=== PATIENT | female | born 1965 | race Caucasian/White ===

== ENCOUNTER 2022-06-12 13:56 | Outpatient (CLI) | payer OTHER, SELFPAY ==
[2022-06-12 12:01] LABS: Cholesterol* 192 mg/dL (90-199); Triglycerides* 96 mg/dL (40-149)
[2022-06-12 12:02] LABS: HDL Cholesterol* 76 mg/dL (>=50); LDL Cholesterol Calculated 97 mg/dL (<100)
[2022-06-13 19:33] LABS: Sex Hormone Binding Globulin 66 nmol/L (17-125); Testosterone, Adult Male 65 ng/dL; Testosterone, Free Calculation 7 pg/mL; Testosterone, Percentage Free 1.1 %
== END 2022-06-12 13:57 | disposition home or self-care (01) ==
PROVIDERS: Obstetrics & Gynecology; PCP Internal Medicine; Visit Provider Internal Medicine
DX: E78.5 Hyperlipidemia, unspecified (principal); R68.82 Decreased libido
CPT/HCPCS: 80061; 84270; 84402; 84403

== ENCOUNTER 2023-04-23 07:50 | Outpatient (CLI) | payer OTHER, SELFPAY | END 2023-04-23 07:51 | disposition home or self-care (01) | LOC: NFLDREF 11:46 | PROVIDERS: PCP Internal Medicine; Referring Provider Internal Medicine; Visit Provider Internal Medicine | DX: Z00.00 Encounter for general adult medical examination without abnormal findings (principal); E78.5 Hyperlipidemia, unspecified; M81.0 Age-related osteoporosis without current pathological fracture; Z13.21 Encounter for screening for nutritional disorder | CPT/HCPCS: 80061; 82306; 82947 ==

== ENCOUNTER 2023-08-18 08:32 | Outpatient (CLI) | payer OTHER, SELFPAY ==
--- NOTE | 2023-08-18 08:45 | CRLHL7_ITS ---
For Patients: As a result of the Century Cures Act, medical imaging exams and procedure reports are released immediately into your electronic medical record. You may view this report before your referring provider. If you have questions, please contact your health care provider. BILATERAL SCREENING MAMMOGRAM WITH COMPUTER-AIDED DETECTION AND TOMOSYNTHESIS TECHNIQUE: CC and MLO views were obtained. These mammographic images have been obtained using full-field digital technique. These mammographic images were interpreted with the benefit of computer-aided detection. Breast Tomosynthesis was used in this interpretation. COMPARISON FILM: 03/27/22, 12/02/17, 08/11/16. FINDINGS: The breasts are heterogeneously dense, which may obscure small masses IMPRESSION: There is no radiographic evidence for malignancy. ASSESSMENT: BI-RADS Category 1: Negative RECOMMENDATION: Routine screening mammogram in 1 year. A lay language report of this examination will be provided to the patient. Al Simental M.D. Diagnostic Radiologist [email or web address] Transcribed: 2:59 pm DW/Dictated by: Al Simental MD @ 08/18/2023 9:12:00 AM (Electronically Signed)
== END 2023-08-18 08:33 | disposition home or self-care (01) ==
LOC: MAMMO 08:32
PROVIDERS: PCP Internal Medicine; Visit Provider Internal Medicine
DX: Z12.31 Encounter for screening mammogram for malignant neoplasm of breast (principal); R92.2 Inconclusive mammogram
CPT/HCPCS: 77063; 77067

== ENCOUNTER 2023-09-29 13:45 | Outpatient (RCR) | payer OTHER, SELFPAY | END 2023-09-30 10:58 | disposition home or self-care (01) | PROVIDERS: PCP Internal Medicine; Visit Provider Internal Medicine | DX: M75.52 Bursitis of left shoulder (principal); M67.922 Unspecified disorder of synovium and tendon, left upper arm; M67.912 Unspecified disorder of synovium and tendon, left shoulder; Z51.89 Encounter for other specified aftercare | CPT/HCPCS: 97110; 97162 ==

== ENCOUNTER 2024-05-04 08:00 | Outpatient (CLI) | payer BC, SELFPAY ==
--- OUTSIDE RECORDS SUMMARY | 2024-05-07 20:54 | XMS_ITS | Clinical Summary ---
Author Organization [facility] Address [place], [place] [address] Care Team Providers Care Mattress Weaver Name Role Phone Unknown, Doctor Primary Care Provider Unavailabl e Allergies Active Allergy Reactions Criticality Noted Date Comments Clindamycin Hives,Rash 08/19/2010 Penicillins 07/26/2010 Sulfa (Sulfonamide Antibiotics) 01/2010 Medications Medication Sig Dispensed Refills Start Date End Date Status Calcium carbonate (OYSTERSHELL CALCIUM) 500 mg tablet Take 1 tablet by mouth 2 times daily with meals. 0 07/26/2010 Active fexofenadine (TERRENCE) 180 mg tabletIndications :Environmental allergies Take 1 tablet by mouth once daily with a meal. 30 tablet 12 08/09/2010 Active ciprofloxacin (CIPRO) 250 mg tabletIndications :Acute sinusitis, unspecified Take 1 tablet by mouth 2 times daily. Wait until they call for this. Raul Fam MD signed electronically .................... 28 tablet 0 02/07/2011 Active methylPREDNISolon e (MEDROL, OPAL,) 4 mg tabletIndications :Acute sinusitis, unspecified Take by mouth. Take by mouth as instructed per packaging. 21 tablet 0 02/07/2011 Active NASONEX 50 mcg/actuation nasal sprayIndications: Environmental allergies INHALE 2 SPRAYS INTO BOTH NOSTRILS ONCE DAILY IF NEEDED 1 canister 0 03/22/2012 Active Active Problems Problem Noted Date Diagnosed Date Environmental allergies 02/07/2011 Immunizations Name Administration Dates Next Due Hepatitis A (Adult) 03/30/2009 Hepatitis B (Adult) 12/14/2009,03/30/2009 Influenza A (H1N1), Inactiva haily (Age >=3 Years) 10/29/2009 Influenza, IIV3 (Age >=3 years) 11/11/2006,09/15 Td (Age >=7 Years) 09/10/1995 Tdap 08/27/2006 Varicella Vaccine 09/12/2004,08/06/1995,06/09/19 95 Social History Tobacco Use Types Packs/Day Years Used Date Smoking Tobacco: Never Alcohol Use Standard Drinks/Week Comments Yes 0 (1 standard drink = 0.6 oz pur e alcohol) occ Sex and Gender Information Value Date Recorded Sex Assigned at Not on file Gender Identity Not on file Sexual Orientation Not on file Obstetrics History Last Filed Vital Signs Vital Sign Reading Time Taken Comments Blood Pressure 121/72 02/07/2011 1:46 PM CDT Pulse 61 02/07/2011 1:46 PM CDT Temperature 36.7 ??C (98.1 ??F) 02/07/2011 1:46 PM CD T Respiratory Rate - - Oxygen Saturation 98% 08/09/2010 1:39 PM CDT Inhaled Oxygen Concentration - - Weight 46.4 kg (102 lb 3.2 oz) 02/07/2011 1:46 P M CDT Height 157.5 cm (5' 2) 08/09/2010 1:39 PM CDT Body Mass Index 18.69 08/09/2010 1:39 PM CDT Plan of Treatment Upcoming Encounters Date Type Department Care Team (Late st Contact Info) Description 06/07/2024 3:00 PM CDT [facility] [address] [place] [address] Scar Lenz DPM [address] [place] [address] Health Maintenance Due Date Last Done Comments Depression screening for age 12+ 1978 HIV for age 15-65 1981 BMI (ht and wt on same day) for age 18+ 02/19/1984 Hepatitis C screening for age 18-79 02/19/1984 Colonoscopy through age 75 2011 Lipids for age 45-75 2011 01/06/2003, 01/06/20 03 Mammogram for age 45-75 2011 Zoster (shingles) series for age 50+ (1 of 2) 02/19/2016 Tetanus booster 08/27/2016 08/27/2006, 09/10/1995 COVID-19 vaccine series (2022-24 season) 2023 Pap test for age 21-65 12/14/2023 , 12/14/2020, 10/31/2015, Additional history exists Influenza for age 50-64 07/24/2024 10/29/20 09, 11/11/2006, 09/15/2003 Tdap Completed 08/27/2006 Pneumococcal series for age 6-64 Aged Out No longer eligible based on patient's age to complete this topic Procedures Procedure Name Priority Date/Time Associated Diagnosis Comments ADMITTING SUPERVISOR THIN PREP PAP SCREEN IMAGED Routine 12/14/2020 11:50 AM TAKE OFF MAN CHOLESTEROL,TOTAL Routine 01/06/2003 10: 21 AM TAKE OFF MAN from Last 3 Months or Most Recently Relevant to Health Maintenance Results * ADMITTING SUPERVISOR THIN PREP PAP SCREEN IMAGED (12/14/2020 11:50 AM TAKE OFF MAN) Case Report Gynecologic Cytology Report ? Case: [id number] ? Authorizing Provider: ??Zofia Vazquez MD ?Collected: ? 12/14/2020 1150 ? Ordering Location: ? [facility] ?Received: ?12/17/2020 0811 ? First Screen: ?Kelvin Plascencia ? Specimen: ?ADMITTING SUPERVISOR ThinPrep Vial Screening, Cervical/Vaginal ? 12/24/2020 1:10 PM TAKE OFF MAN [facility] [employer] [facility] INTERPRETATION /RESULT NEGATIVE FOR INTRAEPITHELIAL LESION OR MALIGNANCY (NIL) (none) 12/24/2020 1:10 PM TAKE OFF MAN [facility] [employer] [facility] NISM(S) Shift in rashawn suggestive of bacterial vaginosis 12/24/2020 1:10 PM TAKE OFF MAN [facility] [employer] [facility] SPECIMEN ADEQUACY Satisfactory for evaluation Endocervical component present 12/24/2020 1:10 PM TAKE OFF MAN [facility] HPV REQUEST HPV and PAP 12/24/2020 1:10 PM TAKE OFF MAN [facility] Last Pap Date 10/31/2015 12/24/2020 1:10 PM TAKE OFF MAN [facility] Last Pap Result NIL 12/24/2020 1:10 PM TAKE OFF MAN [facility] [employer] [facility] Menstrual Status Perimenopausal 12/24/2020 1:10 PM TAKE OFF MAN [facility] [employer] [facility] Additional Information 12/24/2020 1:10 PM TAKE OFF MAN [facility] Comment: Interpreted at [facility] Central Laboratory - [address], [place] [address] Automated Review Failed 12/24/2020 1:10 PM [facility] Comment:Processing failed, m anual screening required. ThinPrep Imaging System, [employer] ANCILLARY TESTING ADMITTING SUPERVISOR HPV Ordered, Please see separate report 12/24/2020 1:10 PM [facility] [employer] [facility] Note The pap test is a screening technique, not a diagnostic procedure. It is used primarily to screen for squamous cancers and precursor lesions. Published studies have shown that it is subject to both false negative and false positive results. The pap test should not be used as the sole means to diagnose or exclude pre-malignant and malignant lesions. 12/24/2020 1:10 PM TAKE OFF MAN [facility] Other (Cervical/Vagina l) 12/14/2020 11:50 AM TAKE OFF MAN 12/17/2020 8:11 AM TAKE OFF MAN Zofia Vazquez MD PATHOLOGY/CYTOLOGY [facility] [address] [place] [address], * (ABNORMAL) CHOLESTEROL,TOTAL (01/06/2003 10:21 AM TAKE OFF MAN) CHOLESTEROL,TOT AL 248(A) 110 - 199 mg/dL 01/06/2003 10:2 1 AM TAKE OFF MAN Narrative 05/03/2004 1:42 AM CDT Ordered by an unspecified provider. Other Clinical Staff CHEMISTRY from Last 3 Months or Most Recently Relevant to Health Maintenance Care Teams Mattress Weaver Relationship Specialty Start Date End Date Unknown, Doctor . PCP - General 07/30/07
== END 2024-05-04 08:01 | disposition home or self-care (01) ==
LOC: NFLDREF 05-07 20:53
PROVIDERS: PCP Internal Medicine; Referring Provider Internal Medicine; Visit Provider Internal Medicine
DX: E78.5 Hyperlipidemia, unspecified (principal); M81.0 Age-related osteoporosis without current pathological fracture
CPT/HCPCS: 80061; 82306

== ENCOUNTER 2025-04-06 13:44 | Outpatient (CLI) | payer BC, SELFPAY ==
--- NOTE | 2025-04-06 14:00 | CRLHL7_ITS ---
For Patients: As a result of the Century Cures Act, medical imaging exams and procedure reports are released immediately into your electronic medical record. You may view this report before your referring provider. If you have questions, please contact your health care provider. XR DXA Bone Mineral Density (BMD) Reason for exam: Age-related osteoporosis. Current height (in): 61. Weight (lb): 105. Menopause age: 51. Ethnicity: White. 1. Have you had a previous hip or vertebral fracture? No. 2. Have you had any fractures during your adult life which did not result from significant trauma (e.g., auto accident)? No. 3. Did either of your parents have a hip fracture? No. 4. Do you smoke? No. 5. Have you ever taken Glucocorticoids? No. 6. Do you have rheumatoid arthritis? No. 7. Do you have secondary osteoporosis? No. 8. Do you drink 3 or more alcoholic drinks per day? No. 9. Are you being treated for osteoporosis? Yes. 10. Have you ever taken any of the following medications: Actonel, Evista, Fosamax, Miacalcin, Reclast, Boniva, Forteo, HRT (i.e. estrogen/hormone therapy), Protelos, Prolia, Vitamin D, Calcium, other ??? please specify. ANSWER: Yes, vitamin D. 11. Do you have any of the following medical conditions: Anorexia or bulimia, asthma or emphysema, end stage renal disease, hyperparathyroidism, any seizure disorders, cancer, inflammatory bowel diseases, hysterectomy, other ??? please specify. ANSWER: No. 12. What was your maximum height (inches)? 62. 13. Do you perform weight bearing exercise regularly? Yes. 14. Do you regularly consume dairy products? Yes. 15. Do you drink caffeinated beverages? No. 16. At what age did your period start? 15. 17. Are you premenopausal? No. 18. How many full term pregnancies have you had? 2. 19. Have you ever missed your period for more than 6 months in a row (not including or menopause)? No. TECHNIQUE: Bone mineral density study was performed using the [employer]. FINDINGS: The results of the study expressed as bone mineral density (BMD) are as follows: Lumbar spine L1 to L4: BMD: 0.812 g/cm2. T-score: -2.1. Z-score: -0.8. Neck Left: BMD: 0.568 g/cm2. T-score: -2.5. Z-score: -1.3. Right: BMD: 0.559 g/cm2. T-score: -2.6. Z-score: -1.4. Total Left: BMD: 0.774 g/cm2. T-score: -1.4. Z-score: -0.5. Right: BMD: 0.757 g/cm2. T-score: -1.5. Z-score: -0.6. IMPRESSION: Osteoporosis. *Comparison exams done prior to 04/2020 were performed on different unit, [employer]. COMPARISON: Compared with scan of 03/12/2022, the bone mineral density has decreased by 0.2 percent at the spine and increased by 6.7 percent at the hip. Compared with scan of 09/16/2018, the bone mineral density has decreased by 13 percent at the spine and decreased by 2.4 percent at the hip. Al Simental M.D. Diagnostic Radiologist [email or web address] bM/Dictated by: Al Simental MD @ 04/06/2025 3:38:00 PM (Electronically Signed)
== END 2025-04-06 13:45 | disposition home or self-care (01) ==
PROVIDERS: PCP Internal Medicine; Visit Provider Internal Medicine
DX: M81.0 Age-related osteoporosis without current pathological fracture (principal)
CPT/HCPCS: 77080

== ENCOUNTER 2025-05-16 09:45 | Outpatient (CLI) | payer BC, SELFPAY | END 2025-05-16 09:46 | disposition home or self-care (01) | LOC: NFLDREF 05-18 17:58 | PROVIDERS: PCP Internal Medicine; Referring Provider Internal Medicine; Visit Provider Internal Medicine | DX: M81.0 Age-related osteoporosis without current pathological fracture (principal); E78.5 Hyperlipidemia, unspecified | CPT/HCPCS: 80061; 82306 ==

== ENCOUNTER 2025-08-07 10:36 | Outpatient (CLI) | payer BC, SELFPAY | END 2025-08-07 10:37 | disposition home or self-care (01) | LOC: NFLDUCREF 10:36 | PROVIDERS: PCP Internal Medicine | DX: N30.01 Acute cystitis with hematuria (principal) | CPT/HCPCS: 87086 ==

== ENCOUNTER 2025-09-18 14:17 | Outpatient (CLI) | payer BC, SELFPAY ==
--- NOTE | 2025-09-18 14:40 | CRLHL7_ITS ---
For Patients: As a result of the Century Cures Act, medical imaging exams and procedure reports are released immediately into your electronic medical record. You may view this report before your referring provider. If you have questions, please contact your health care provider. INDICATION: BILATERAL SCREENING MAMMOGRAM, ASYMPTOMATIC 60 Y/O FEMALE COMPARISON: 08/18/2023, 03/27/2022, 12/02/2017 TECHNIQUE: Digital mammogram in CC and MLO projections including computer-aided detection (CAD) and tomosynthesis. BREAST COMPOSITION: The breasts are heterogeneously dense, which may obscure small masses. FINDINGS: No suspicious findings. ASSESSMENT: BI-RADS 2 Benign RECOMMENDATION: Annual screening mammogram. A lay language report of this examination will be provided to the patient. Dictated by: Al Simental MD @ 09/19/2025 09:51:50 (Electronically Signed)
== END 2025-09-18 14:18 | disposition home or self-care (01) ==
LOC: MAMMO 14:17
PROVIDERS: PCP Internal Medicine; Visit Provider Internal Medicine
DX: Z12.31 Encounter for screening mammogram for malignant neoplasm of breast (principal); R92.333 Mammographic heterogeneous density, bilateral breasts
CPT/HCPCS: 77063; 77067